=== PATIENT | female | born 1945 | race Caucasian/White ===

== ENCOUNTER → 2017-08-16 08:51 | Outpatient (CLI) | payer MEDICARE, SELFPAY ==
--- NOTE | 2017-08-16 09:05 | RAD_ITS ---
STUDY: X-RAY CHEST REASON FOR EXAM: Female, 72 years old. Shortness of breath and dyspnea. TECHNIQUE: PA and lateral views of the chest. COMPARISON: None. FINDINGS: The lungs are fully expanded. There are a few minor curvilinear densities in the lung bases that suggest sites of focal chronic change. No consolidating infiltrate. There is no demonstrated pleural abnormality. Sternal cerclage wires and vascular clips are present from a prior sternotomy and coronary artery bypass graft procedure (CABG). A mitral valve prosthesis also projects over the cardiac silhouette. Normal mediastinum and joshua. Normal visualized pulmonary arteries. There is mild atherosclerotic calcification of the aortic arch. There are multilevel degenerative changes of the visualized thoracic spine. 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 There is no demonstrated abnormality of the visualized soft tissue structures of the upper abdomen. RAD/Chest PA and Lateral IMPRESSION: 1. Prior median sternotomy, CABG, and mitral valve replacement. The heart size and pulmonary vascular pattern are within normal limits. 2. Minor linear scarring in the lung bases. No pneumonic infiltrate or pleural effusion. Electronically Signed: Alan Rogers MD at 12:56 EDT , Service support ,
== END ==
PROVIDERS: Family Provider Internal Medicine; PCP Internal Medicine; Visit Provider Internal Medicine Pulmonary Disease
DX: J44.9 Chronic obstructive pulmonary disease, unspecified (principal); R06.00 Dyspnea, unspecified; R09.02 Hypoxemia
CPT/HCPCS: 71046

== ENCOUNTER → 2017-10-06 12:40 | Outpatient (CLI) | payer MEDICARE, SELFPAY ==
--- NOTE | 2017-10-06 12:44 | ECHOCS_ITS ---
Reason For Study: PHTN, DYSPNEA, EDEMA Procedure This was a 2D Doppler, Color Flow transthoracic echocardiogram. The exam was of poor technical quality due to body habitus. The study was technically difficult. Contrast injection was performed. Exam performed in department. Left Ventricle Normal LV size. Left ventricular systolic function is normal. The estimated ejection fraction is 65 %. Transmitral diastolic flow velocities suggest moderate (stage 2) diastolic dysfunction (pseudonormal pattern). No regional wall motion abnormalities noted. Right Ventricle Normal RV size. Normal systolic function. Atria The left atrium is mildly enlarged. Normal right atrium. No doppler evidence for ASD. Mitral Valve Stable appearing mechanical mitral valve apparatus. Trivial transvalvular insufficiency of the mitral valve. Tricuspid Valve Normal tricuspid valve. Trivial tricuspid valve insufficiency. Right ventricular systolic pressure estimated to be 29 mmHg. Aortic Valve Trisinus/trileaflet aortic valve. Moderate focal aortic valve calcification. Pulmonic Valve The pulmonic valve is not well visualized. Trivial pulmonic valve insufficiency. Great Vessels Normal sized aortic root. Pericardium/Pleural No pericardial effusion. Medication 22 gauge I.V. with prn adaptor inserted into right arm. Diluted definity 0.3ml given slow IV push to enhance endocardial definition. MMode/2D Measurements & Calculations LVIDd: 4.8 cm IVSd: 1.2 cm Ao root diam: 2.8 cm LVIDs: 3.1 cm LVPWd: 1.2 cm LA dimension: 5.0 cm RVDd: 3.0 cm FS: 35.8 % LAV(MOD-bp): 81.3 ml LA A4 area: 23.4 cm2 RA A4 area: 22.9 cm2 LAV(MOD-bp) Indexed: 36.5 ml/m2 LAV(MOD-sp2): 90.9 ml LAV(MOD-sp4): 72.6 ml Doppler Measurements & Calculations MV E max antonio: 141.7 cm/sec Lat Peak E' Antonio: 6.3 cm/sec Med Peak E' Antonio: 5.1 cm/sec MV A max antonio: 110.7 cm/sec E/E' lat: 22.4 E/E' med: 27.7 MV E/A: 1.3 MV V2 max: 145.6 cm/sec Ao V2 max: 143.7 cm/sec LV V1 max: 94.9 cm/sec MV max P.5 mmHg Ao max P.3 mmHg LV V1 max P.6 mmHg MV V2 mean: 96.1 cm/sec MV mean P.9 mmHg MV V2 VTI: 38.9 cm PA V2 max: 144.4 cm/sec TR max antonio: 254.1 cm/sec TR max P.8 mmHg Interpretation Summary The study was technically difficult. Contrast injection was performed. Left ventricular systolic function is normal. The estimated ejection fraction is 65 %. The left atrium is mildly enlarged. Stable appearing mechanical mitral valve apparatus. Trivial transvalvular insufficiency of the mitral valve. Trivial tricuspid valve insufficiency. Moderate focal aortic valve calcification. Trivial pulmonic valve insufficiency. Right ventricular systolic pressure estimated to be 29 mmHg. Transmitral diastolic flow velocities suggest diastolic dysfunction (pseudonormal pattern). Ordering Physician: Renaldo Hubbard Referring Physician: Renaldo Hubbard Performed By: Germaine Hope, LISA, RVT
== END ==
PROVIDERS: Family Provider Internal Medicine; PCP Internal Medicine; Visit Provider Internal Medicine Pulmonary Disease
DX: I27.20 Pulmonary hypertension, unspecified (principal); R06.00 Dyspnea, unspecified; R60.9 Edema, unspecified
CPT/HCPCS: 93306; Q9957; A4216; C8929

== ENCOUNTER → 2017-10-10 12:42 | Outpatient (CLI) | payer MEDICARE, SELFPAY ==
--- NOTE | 2017-10-10 12:43 | CT_ITS ---
STUDY: CT CHEST WITHOUT CONTRAST REASON FOR EXAM: Female, 72 years old. COPD and shortness of breath RADIATION DOSAGE (If Supplied By Facility): CTDIvol = ( 20.26 ) mGy, DLP = ( 627.01 ) mGycm TECHNIQUE: Transaxial imaging was performed without the administration of intravenous contrast material. Individualized dose optimization techniques were used for this CT. COMPARISON: None. FINDINGS: There is prominence of interstitial markings most pronounced the lower lobes with scattered centrilobular and paraseptal emphysematous changes most pronounced in the upper lobes. . There is also thickening of the jeter of the bronchi in the lower lobes. No focal infiltration or pulmonary edema There is no demonstrated pleural abnormality. Heart is upper normal size. There is mitral valve prosthesis and postsurgical changes status post median sternotomy and CABG. Normal mediastinum. Normal hilar regions. Normal unenhanced pulmonary arteries. Atherosclerotic changes of the aorta without evidence for aneurysm. Dorsal spine demonstrates spondylosis There is no demonstrated abnormality of the visualized upper abdomen. CT/Chest without Contrast IMPRESSION: Chronic interstitial and emphysematous changes with coexisting ASHD. No acute focal infiltration or pulmonary edema Electronically Signed: Alec Sullivan MD at 22:46 EDT , Service support ,
== END ==
PROVIDERS: Family Provider Internal Medicine; PCP Internal Medicine; Visit Provider Internal Medicine Pulmonary Disease
DX: J44.9 Chronic obstructive pulmonary disease, unspecified (principal)
CPT/HCPCS: 71250

== ENCOUNTER 2017-11-13 08:00 | Outpatient (RCR) | payer MEDICARE, SELFPAY ==
--- NOTE | 2017-11-02 10:20 | PCM.PR.HP ---
History of Present Illness Arrival date:: 11/02/17 Arrival time:: 10:21 Date of Referral:: 10/24/17 Date of Evaluation: 11/02/17 Referring Physician: Dr. Renaldo Hubbard Primary Diagnosis: COPD History of Present Illness: Patient is a 72 year old female with COPD of Dr. Renaldo Hubbard's who presents to pulmonary rehab today for her evaluation and assessment to start pulmonary rehab. mMRC Breathless Scale: When is the patient short of breath? Y/N Grade: Description of Breathlessness: 0 I only get breathless with strenuous exercise. 1 I get short of breath when hurrying on level ground or walking up a slight hill. 2 On level ground, I walk slower than people of the same age because of breathless, or have to stop for breath when walking at my own pace. Y 3 I stop for breath after walking 100 yards or after a few minutes on level ground. 4 I am too breathless to leave the house or I am breathless when dressing. Respiratory Problems: Yes: Fatigue, Wheezing, Able to Speak in Full Sentences, Dizziness, Ankle Swelling, Dyspnea with Activity, Dyspnea Lying Down Flat No: Retain Secretions, Dyspnea at Rest Home Medications: Home Medications allopurinol 100 mg tablet See Label Instructions PO BID 08/22/17 atorvastatin 20 mg tablet 20 mg PO QDAY 08/22/17 carvedilol 6.25 mg tablet 6.25 mg PO BID 08/22/17 nitroglycerin 0.4 mg sublingual tablet 0.4 mg SUBLINGUAL Q5M PRN 08/22/17 pregabalin 100 mg capsule See Label Instructions PO TID 08/22/17 tramadol 50 mg tablet 50 mg PO .QID PRN tab 08/22/17 amoxicillin 500 mg capsule 2 g PO .COMPLEX cap 08/29/17 duloxetine 20 mg capsule,delayed release PO 30 Days #60 08/29/17 furosemide 40 mg tablet 40 mg PO QDAY tab 08/29/17 pregabalin 200 mg capsule PO 30 Days #90 08/29/17 ranitidine 150 mg tablet PO 10 Days #20 08/29/17 warfarin 4 mg tablet 4 mg PO QDAY 08/29/17 Albuterol Sulfate [Proair Hfa] 8.5 gm IH Q4H PRN PRN 11/02/17 Ascorbic Acid [Vitamin C] 1,000 mg PO 11/02/17 Aspirin [Lo-Dose Aspirin EC] 81 mg PO 11/02/17 Cetirizine HCl [Zyrtec] 10 mg PO DAILY 11/02/17 Cyanocobalamin (Vitamin B-12) [Vitamin B-12] 1,000 mcg PO 11/02/17 Duloxetine HCl [Cymbalta] 11/02/17 Glucosamine Complex-Vit D3 Cpt 11/02/17 Magnesium Oxide [Magnesium] 500 mg PO 11/02/17 Pregabalin [Lyrica] 200 mg PO BID 11/02/17 Sour Benedict Extract [Tart Benedict Extract] 1,000 mg PO 11/02/17 Triamcinolone Acetonide [Nasacort Aq Nasal [place]] 11/02/17 Umeclidinium Brm/Vilanterol Tr [Anoro Ellipta 62.5-25 Mcg INH] 1 each IH 11/02/17 Vitamin E (Dl,Tocopheryl Acet) [Vitamin E] 400 unit PO 11/02/17 Allergies/Adverse Reactions: Allergies No Known Allergies Allergy (Verified 08/29/17 10:16) - Secretions Normal Color:: none Hx of Sleep Apnea: Yes Do you snore loudly (louder than talking or can be heard through closed doors)?: Yes - Diagnosed twice with YAMILETH and had test locally that doesnt but requires O2@ at night due to nocturnal hypoxemia. Do you often feel tired/ fatigued/ sleepy during daytime?: Yes Has anyone observed you stop breathing during sleep?: Yes History of Hypertension (for STOP score): Yes STOP Results: Positive Medical Utilization Do you use a peak flow meter at home?: No Do you use a spacer device with your inhalers?: No Number of hospital visits in the last year?: 0 Number of emergency room visits in the last year?: 0 Do you see your physician on a regular schedule?: Yes How often?: Yes; Keely 6 mo; Haydee 3 mo; Maria Luz annual Advanced Directives - Advanced Directives Power of Sensitizer: No Living Will: No Advance Directives Information Provided: Yes - Retort Operator here to see patient and complete appropiate forms w/patient. Advance Directives on File: Yes - Copied by Retort OperatorKecia DNR Order?:: No - MOLST See MOLST form: No Past Medical History Medical History: Past Medical History (Last Updated 08/16/17 @ 12:41 by Cande Fu) Persistent atrial fibrillation (Chronic) I48.1 Ischemic cardiomyopathy (Chronic) I25.5 Atherosclerotic heart disease of [place] coronary artery without angina pectoris (Chronic) I25.10 Surgical History: Past Surgical History (Last Reviewed 08/29/17 @ 10:16 by Cande Fu) History of throat surgery (Resolved) Z98.890 Hx of appendectomy (Resolved) Z90.49 History of tonsillectomy (Resolved) Z90.89 H/O: hysterectomy (Resolved) Z90.710 Hx of hernia repair (Resolved) Z98.890, Z87.19 H/O mitral valve replacement (Resolved) Z95.2 H/O coronary artery bypass surgery (Resolved) Z95.1 CABG x2 SVG to LAD and SVG to RCA 2005 Family History: Family History (Last Reviewed 08/29/17 @ 10:16 by Cande Fu) Mother CAD (coronary artery disease) Father CAD (coronary artery disease) - Current/ Previous Services Pulmonary Rehab:: No - Comments Comments: Did Cardiac Rehab in 2005 following her heart surgery in [place]. Social History - Smoking History Smoking Status: Former smoker - Quit smoking in 2013 Hx Tobacco Use: Yes Hx Smoking Exposure: No - Alcohol Use Alcohol Usage: No - Substance Abuse Hx Substance Use: No - Occupation Occupation (List type of work in comments):: Retired - Hobbies, Recreation, Social Activities Hobbies: Other - gardening, reading, and old movies. Functioning ADL/IADL - Current Ability Current Ability: Independent Self-Care (e.g.,grooming, dressing, & bathing), Independent Ambulation, Independent Transfer, Independent Household tasks (e.g., light meal prep, laundry, shopping) - Pt Functioning Prior to Problem Prior Functioning: Self-Care (e.g.,grooming, dressing, & bathing): Independent, Ambulation: Independent, Transfer: Independent, Household tasks (e.g., light meal prep, laundry, shopping): Independent Social Environment - Status Marital Status: - Current Living Arrangements Living Environment:: Alone - Children How many children do you have?: 2 - 1-in [facility] care, one grandchild. Do any of your children live nearby?: No - [place], [place] - Safety Do you feel safe in your surroundings?: Yes Review of Systems Review of Systems: Right click = Denies ([place]). Left click = Reports ([place]) Respiratory: Reports: Appetite, Normal, Sleep, Normal. Denies: Cough, SOB at Rest, Sputum production Is Patient Pain Free?: Yes Pain Location: none Pain Level: 0/10 Risk Factor Assessment - Chief Complaint Chief Complaint: Mrs Silva is a 72F who presents to pulmonary rehabilitation services today under the care of Dr. Renaldo Hubbard for her COPD. The patient cathryn has a previous heart history with CABG done in 2005 in [place] and is currently seeing Dr. Shadi Braga locally for her heart care. - Vital Signs Temperature: 98.7 F Pulse Rate: 66 Pulse Rhythm: Regular Respiratory Rate: 16 Pulse Ox: 96 Blood Pressure: 132/78 - patient walked from [address] [place] [address] Nailbeds:: pink - Diabetes Nutrition Referral for Diabetes: No - Obesity Height: 5 ft 8 in Weight:: 238 lb Weight in Pounds: 238.0 lbs Weight Source: Standing Scale Body Mass Index (BMI): 36.1 Nutritional Referral for Obesity: Yes - seeing dietary recently for weight counseling and weight loss. - Physical Activity Physical Inactivity: Recreational activity - Risk Stratification Risk Guidelines: Lowest Risk: Risk Factor for Smoking, Risk Factor for Dyslipidemia, Risk Factor for Diabetes, Risk Factor for Depression, Moderate Risk: Risk Factor for Hypertension, Risk Factor for Sedentary Lifestyle, Highest Risk: Risk Factor for Obesity - For Smoking Smoking Risk Guidelines: Smoking Low Risk: None or quit greater than 6 months ago. Smoking Moderate Risk: Smoker or quit 6 months or less ago. Smoking High Risk: Smoker - For Dyslipidemia Dyslipidemia Risk Guidelines: Low Risk: Moderate Risk: High Risk: 15-25% fat 25.1-29% fat >/= 30% fat. <7% sat fat 7-9% sat fat >9% sat fat. <150 mg chol 150-299 mg chol >/= 300 mg chol. LDL <100 LDL 100-129 LDL >/= 130. Chol/HDL ratio <5.0 Chol/HDL ratio 5.0-6.0 Chol/HDL ratio >6.0. Triglycerides <100 Triglycerides 100-149 Triglycerides >/= 150 - For Diabetes Mellitus Diabetes Risk Guidelines: Diabetes Low Risk: HgA1c <6.5% and/or FBG <120. Diabetes Moderate Risk: HgA1c 6.6-7.9% and/or FBG 120-180. Diabetes High Risk: HgA1c >/= 8% and/or FBG >180 - For Obesity/Overweight Obesity/Overweight Risk Guidelines: Obesity Low Risk: BMI <25.0. Obesity Moderate Risk: BMI 25-29.9. Obesity High Risk: BMI >/= 30.0 - For Hypertension Hypertension Risk Guidelines: Hypertension Low Risk: Systolic <120 and Diastolic <80. Hypertension Moderate Risk: Systolic 120-139 and Diastolic 80-89. Hypertension High Risk: Systolic >/= 140 and Diastolic >/= 90 - For Sedentary Lifestyle Sedentary Lifestyle Risk Guidelines: Sedentary Lifestyle Low Risk: >/= 1,500 kcal/week. Sedentary Lifestyle Moderate Risk: 700-1,499 kcal/week. Sedentary Lifestyle High Risk: < 700 kcal/week - For Depression Depression Risk Guidelines: Depression Low Risk: Not clinically depressed. Depression Moderate Risk: Mildly depressed. Depression High Risk: Clinically depressed Motivation - Motivation to Participate On a scale of 1 to 10, how prepared are you to commit to attending program?: 10 What do you see as barriers to successfully being able to complete the program?: none; transportation perhaps. What do you see as the benefits of succesfully completing the program? In other words, what do you hope to get out of participating in the program?: endurance, strength, abiltiy to participate in activites recreation etc. Are there issues you are dealing with that will interfere with completing the program?: none Do you have a spouse or signficant other, family or friends who will help support you to complete the program?: yes Diagnostic Data Review - Pulmonary Function Test FEV1:: 1.19 FVC:: 1.94 FEV1/FVC%:: 61 Gold Classification: GOLD class II(mod. COPD)with FEV1/FVC <70%, 50%</= FEV1< 50% predicted
--- NOTE | 2017-11-02 10:33 | PR.HP_ITS ---
History of Present Illness Arrival date:: 11/02/17 Arrival time:: 10:21 Date of Referral:: 10/24/17 Date of Evaluation: 11/02/17 Referring Physician: Dr. Renaldo Hubbard Primary Diagnosis: COPD History of Present Illness: Patient is a 72 year old female with COPD of Dr. Renaldo Hubbard's who presents to pulmonary rehab today for her evaluation and assessment to start pulmonary rehab. [facility] Breathless Scale: When is the patient short of breath? Y/N Grade: Description of Breathlessness: 0 I only get breathless with strenuous exercise. 1 I get short of breath when hurrying on level ground or walking up a slight hill. 2 On level ground, I walk slower than people of the same age because of breathless, or have to stop for breath when walking at my own pace. Y 3 I stop for breath after walking 100 yards or after a few minutes on level ground. 4 I am too breathless to leave the house or I am breathless when dressing. Respiratory Problems: Yes: Fatigue, Wheezing, Able to Speak in Full Sentences, Dizziness, Ankle Swelling, Dyspnea with Activity, Dyspnea Lying Down Flat No: Retain Secretions, Dyspnea at Rest Home Medications: Home Medications allopurinol 100 mg tablet See Label Instructions PO BID 08/22/17 atorvastatin 20 mg tablet 20 mg PO QDAY 08/22/17 carvedilol 6.25 mg tablet 6.25 mg PO BID 08/22/17 nitroglycerin 0.4 mg sublingual tablet 0.4 mg SUBLINGUAL Q5M PRN 08/22/17 pregabalin 100 mg capsule See Label Instructions PO TID 08/22/17 tramadol 50 mg tablet 50 mg PO .QID PRN tab 08/22/17 amoxicillin 500 mg capsule 2 g PO .COMPLEX cap 08/29/17 duloxetine 20 mg capsule,delayed release PO 30 Days #60 08/29/17 furosemide 40 mg tablet 40 mg PO QDAY tab 08/29/17 pregabalin 200 mg capsule PO 30 Days #90 08/29/17 ranitidine 150 mg tablet PO 10 Days #20 08/29/17 warfarin 4 mg tablet 4 mg PO QDAY 08/29/17 Albuterol Sulfate [Proair Hfa] 8.5 gm IH Q4H PRN PRN 11/02/17 Ascorbic Acid [Vitamin C] 1,000 mg PO 11/02/17 Aspirin [Lo-Dose Aspirin EC] 81 mg PO 11/02/17 Cetirizine HCl [Zyrtec] 10 mg PO DAILY 11/02/17 Cyanocobalamin (Vitamin B-12) [Vitamin B-12] 1,000 mcg PO 11/02/17 Duloxetine HCl [Cymbalta] 11/02/17 Glucosamine Complex-Vit D3 Cpt 11/02/17 Magnesium Oxide [Magnesium] 500 mg PO 11/02/17 Pregabalin [Lyrica] 200 mg PO BID 11/02/17 Sour Benedict Extract [Tart Benedict Extract] 1,000 mg PO 11/02/17 Triamcinolone Acetonide [Nasacort Aq Nasal [place]] 11/02/17 Umeclidinium Brm/Vilanterol Tr [Anoro Ellipta 62.5-25 Mcg INH] 1 each IH Vitamin E (Dl,Tocopheryl Acet) [Vitamin E] 400 unit PO 11/02/17 Allergies/Adverse Reactions: Allergies No Known Allergies Allergy (Verified 08/29/17 10:16) - Secretions Normal Color:: none Hx of Sleep Apnea: Yes Do you snore loudly (louder than talking or can be heard through closed doors)? : Yes - Diagnosed twice with YAMILETH and had test locally that doesnt but requires O2@ at night due to nocturnal hypoxemia. Do you often feel tired/ fatigued/ sleepy during daytime?: Yes Has anyone observed you stop breathing during sleep?: Yes History of Hypertension (for STOP score): Yes STOP Results: Positive Medical Utilization Do you use a peak flow meter at home?: No Do you use a spacer device with your inhalers?: No Number of hospital visits in the last year?: 0 Number of emergency room visits in the last year?: 0 Do you see your physician on a regular schedule?: Yes How often?: Yes; Keely 6 mo; Haydee 3 mo; Maria Luz annual Advanced Directives - Advanced Directives Power of Tram Driver: No Living Will: No Advance Directives Information Provided: Yes - Director Operating here to see patient and complete appropiate forms w/patient. Advance Directives on File: Yes - Copied by Director OperatingKecia DNR Order?:: No - MOLST See MOLST form: No Past Medical History Medical History: Past Medical History (Last Updated 08/16/17 @ 12:41 by Cande Fu) Persistent atrial fibrillation (Chronic) I48.1 Ischemic cardiomyopathy (Chronic) I25.5 Atherosclerotic heart disease of [place] coronary artery without angina pectoris (Chronic) I25.10 Surgical History: Past Surgical History (Last Reviewed 08/29/17 @ 10:16 by Cande Fu) History of throat surgery (Resolved) Z98.890 Hx of appendectomy (Resolved) Z90.49 History of tonsillectomy (Resolved) Z90.89 H/O: hysterectomy (Resolved) Z90.710 Hx of hernia repair (Resolved) Z98.890, Z87.19 H/O mitral valve replacement (Resolved) Z95.2 H/O coronary artery bypass surgery (Resolved) Z95.1 CABG x2 SVG to LAD and SVG to RCA 2005 Family History: Family History (Last Reviewed 08/29/17 @ 10:16 by Cande Fu) Mother CAD (coronary artery disease) Father CAD (coronary artery disease) - Current/ Previous Services Pulmonary Rehab:: No - Comments Comments: Did Cardiac Rehab in 2005 following her heart surgery in [place]. Social History - Smoking History Smoking Status: Former smoker - Quit smoking in 2013 Hx Tobacco Use: Yes Hx Smoking Exposure: No - Alcohol Use Alcohol Usage: No - Substance Abuse Hx Substance Use: No - Occupation Occupation (List type of work in comments):: Retired - Hobbies, Recreation, Social Activities Hobbies: Other - gardening, reading, and old movies. Functioning ADL/IADL - Current Ability Current Ability: Independent Self-Care (e.g.,grooming, dressing, & bathing), Independent Ambulation, Independent Transfer, Independent Household tasks (e.g. , light meal prep, laundry, shopping) - Pt Functioning Prior to Problem Prior Functioning: Self-Care (e.g.,grooming, dressing, & bathing): Independent, Ambulation: Independent, Transfer: Independent, Household tasks (e.g., light meal prep, laundry, shopping): Independent Social Environment - Status Marital Status: - Current Living Arrangements Living Environment:: Alone - Children How many children do you have?: 2 - 1-in [place] care, one grandchild. Do any of your children live nearby?: No - [place], [place] - Safety Do you feel safe in your surroundings?: Yes Review of Systems Review of Systems: Right click = Denies ([place]). Left click = Reports ([place]) Respiratory: Reports: Appetite, Normal, Sleep, Normal. Denies: Cough, SOB at Rest, Sputum production Is Patient Pain Free?: Yes Pain Location: none Pain Level: 0/10 Risk Factor Assessment - Chief Complaint Chief Complaint: Mrs Silva is a 72F who presents to pulmonary rehabilitation services today under the care of Dr. Renaldo Hubbard for her COPD. The patient cathryn has a previous heart history with CABG done in 2005 in [place] and is currently seeing Dr. Shadi Braga locally for her heart care. - Vital Signs Temperature: 98.7 F Pulse Rate: 66 Pulse Rhythm: Regular Respiratory Rate: 16 Pulse Ox: 96 Blood Pressure: 132/78 - patient walked from [employer] [place] apt. Nailbeds:: pink - Diabetes Nutrition Referral for Diabetes: No - Obesity Height: 5 ft 8 in Weight:: 238 lb Weight in Pounds: 238.0 lbs Weight Source: Standing Scale Body Mass Index (BMI): 36.1 Nutritional Referral for Obesity: Yes - seeing dietary recently for weight counseling and weight loss. - Physical Activity Physical Inactivity: Recreational activity - Risk Stratification Risk Guidelines: Lowest Risk: Risk Factor for Smoking, Risk Factor for Dyslipidemia, Risk Factor for Diabetes, Risk Factor for Depression, Moderate Risk: Risk Factor for Hypertension, Risk Factor for Sedentary Lifestyle, Highest Risk: Risk Factor for Obesity - For Smoking Smoking Risk Guidelines: Smoking Low Risk: None or quit greater than 6 months ago. Smoking Moderate Risk: Smoker or quit 6 months or less ago. Smoking High Risk: Smoker - For Dyslipidemia Dyslipidemia Risk Guidelines: Low Risk: Moderate Risk: High Risk: 15-25% fat 25.1-29% fat >/= 30% fat. <7% sat fat 7-9% sat fat >9% sat fat. <150 mg chol 150-299 mg chol >/= 300 mg chol. LDL <100 LDL 100-129 LDL >/= 130. Chol/HDL ratio <5.0 Chol/HDL ratio 5.0-6.0 Chol/HDL ratio >6.0. Triglycerides <100 Triglycerides 100-149 Triglycerides >/= 150 - For Diabetes Mellitus Diabetes Risk Guidelines: Diabetes Low Risk: HgA1c <6.5% and/or FBG <120. Diabetes Moderate Risk: HgA1c 6.6-7.9% and/or FBG 120-180. Diabetes High Risk: HgA1c >/= 8% and/or FBG >180 - For Obesity/Overweight Obesity/Overweight Risk Guidelines: Obesity Low Risk: BMI <25.0. Obesity Moderate Risk: BMI 25-29.9. Obesity High Risk: BMI >/= 30.0 - For Hypertension Hypertension Risk Guidelines: Hypertension Low Risk: Systolic <120 and Diastolic <80. Hypertension Moderate Risk: Systolic 120-139 and Diastolic 80-89. Hypertension High Risk: Systolic >/= 140 and Diastolic >/= 90 - For Sedentary Lifestyle Sedentary Lifestyle Risk Guidelines: Sedentary Lifestyle Low Risk: >/= 1 ,500 kcal/week. Sedentary Lifestyle Moderate Risk: 700-1,499 kcal/week. Sedentary Lifestyle High Risk: < 700 kcal/week - For Depression Depression Risk Guidelines: Depression Low Risk: Not clinically depressed. Depression Moderate Risk: Mildly depressed. Depression High Risk: Clinically depressed Motivation - Motivation to Participate On a scale of 1 to 10, how prepared are you to commit to attending program?: 10 What do you see as barriers to successfully being able to complete the program? : none; transportation perhaps. What do you see as the benefits of succesfully completing the program? In other words, what do you hope to get out of participating in the program?: endurance, strength, abiltiy to participate in activites recreation etc. Are there issues you are dealing with that will interfere with completing the program?: none Do you have a spouse or signficant other, family or friends who will help support you to complete the program?: yes Diagnostic Data Review - Pulmonary Function Test FEV1:: 1.19 FVC:: 1.94 FEV1/FVC%:: 61 Gold Classification: GOLD class II(mod. COPD)with FEV1/FVC <70%, 50%</= FEV1< 50 % predicted
--- NOTE | 2017-11-02 10:40 | PR.ITP_ITS ---
General Information - General Information Admitting Diagnosis: COPD Gold Classification:: GOLD 2: Moderate - PFT FEV1:: 1.19 FVC:: 1.94 FEV1/FVC%:: 61 - Education/Goals Barriers to Learning: Hearing Impairment, Vision Impairment Individual Counseling: Initial Assessment: Dyspnea control techniques at rest, activity, and ADLs, Inhaled and respiratory medications, ADL management and pacing, Nutrition & weight management, Home exercise plan & guidelines Patient Goals: Breathe better: Initial Assessment, Increase endurance/stamina: Initial Assessment, Return to recreation/hobby: Initial Assessment, Control panic/anxiety: Initial Assessment, Improve diet and nutrition: Initial Assessment, Symptom management: Initial Assessment, Improve weight: Initial Assessment Exercise - Initial Assessment - Visit Date of Eval: 11/02/17 - Problem/Goals Problems: Deconditioning, Knowledge deficit exercise guidelines, Knowledge deficit exercise safety Goals:: Aerobic exercise 30-60 mins x 9 weeks - Exercise Prescription Mode:: Treadmill, Airdyne, NuStep, Arm Ergometer Frequency (x/week): 3 Duration:: 30 MET LEVEL:: 2.5 HR (bpm):: 112 - 105-112 THRR Exercise Progression: As tolerated per protocol. - Plan Plan and Plan to Review:: Benefits of exercise, Core components of exercise, How to measure dyspnea level, How to monitor dyspnea level, Exercise intensity, Exercise safety guideline, Home exercise guidelines, Selena: 3-4/-13 Disease Management - Initial - Problems/Goals-Hypoxemia Hypoxemia Problems:: Hypoxemia - nocturnal hypoxemia uses oxygen at night. Hypoxemia Goals:: Hypoxemia managed, Using O2 as Rx's safely - Problems/Goals-Medications Medication Goals: Correct technique/timing & care of MDI, DPI, nebulizer, and spacer. - Problems/Goals-Bronchial Hygiene Bronchial Hygiene Goals:: Pt demonstrates effective cough, effective secretion clearance., Pt describes signs and symptoms of infection. - Initial Assessment SpO2:: 93 FiO2:: 21 Does pt report taking home meds as prescribed?: Yes Medications: Yes MDI, Yes DPI, No Spacer - Requires instruction use and set-up of device Patient Reports:: No cough - Plans Hypoxemia Plan:: Monitor SpO2 rest & with exercise, Train appropriate O2 use at rest, Train appropriate O2 use with exercise, Train O2 safety & systems Reviewed prescribed medications:: Purpose Instruct correct technique/timing & care:: MDI, DPI Bronchial Hygiene Plan: Controlled cough, Hydration, Hand hygiene, When to call MD, Signs/symptoms to report:, Cleaning of respiratory equipment Psychosocial - Initial Assess - Problems/Goals Problems: Impaired Q.O.L. Psychosocial Goals: Improved Q.O.L. - Psychosocial Test Depression:: Impaired QOL Referred to MD for counseling:: No - Plan Reviewed screening results: No Instructions given regarding:: Benefits of exercise, Relaxation techniques, Training in coping strategies Stress management: On meds currently Tobacco - Initial Assessment - Program Goals Tobacco Program Goals: Complete smoking cessation. Attend education classes. Improve Knowledge Test score - Stage of Change Stages of Change:: Action - Learning Barriers Learning Barriers: Ready to Learn - Tobacco Use Tobacco Use: Non-smoker - previous smoker quit 14 years ago. How long ago did you quit using tobacco products?: Greater than or equal to 6 months ago - Intervention Smoking Cessation Referral:: No Individual Education/Counseling:: No Education Schedule Given:: Yes - Education Gave Education Materials For:: Pulmonary Disease, Risk Factors, Breathing Techniques, Medical Compliance, Pulmonary A&P, Exacerbation Signs & Symptoms, Stress & Relaxation Nutrition/Wt Mgmt - Initial - Problems/Goals Problems: Overweight Goals: Wt Loss 1-2 lbs per week - Weight Management Knowledge Deficit Management of:: Overweight, Role of exercise in weight control , Weight control w/Prednisone - Diabetes Diabetes:: No Insulin: No Do you monitor your blood sugar at home?: No - Intervention Referral to dietitian:: No Referral to Diabetic Clinic:: No Will attend diet classes:: Yes - Plan Nutrition Plan: Yes Review BMI or WC & identify target wt & strategies for wt control, Yes Weight control education class: Patient Health Questionnaire Initial Assessment 1. Little interest or pleasure in doing things: Not at all 2. Feeling down, depressed, or hopeless: Several days 3. Trouble falling or staying asleep, or sleeping too much: Several days 4. Feeling tired or having little energy: More than half the days 5. Poor appetite or overeating: Several days 6. Feeling bad about yourself -- or that you are a failure or have let yourself or your family down: Not at all 7. Trouble concentrating on things, such as reading the newspaper or watching television: Several days 8. Moving or speaking so slowly that other people could have noticed. Or the opposite - being so fidgety or restless that you have been moving around a lot more than usual: Not at all 9. Thoughts that you would be better off , or of hurting yourself in some way: Not at all How difficult have these problems made it for you to do your work, take care of things at home, or get along with other people?: Somewhat difficult Total Score: 6 COPD Knowledge Test Initial COPD is a lung disease that:: Makes it hard to breathe & gets worse over time In the [place] the term COPD describes 2 main lung conditions:: Emphysema & pulmonary hypertension The most common lung irritant that causes COPD is:: Cigarette smoke Common signs and symptoms of COPD include:: An ongoing cough/cough that produces a large amount of mucus, & SOB If you have COPD, what steps can you take?: All of the above Swelling of the ankles is common in COPD:: False Fatigue [tiredness] is common in COPD:: True Wheezing is common in COPD:: True Crushing chest pain is common in COPD:: False Rapid weight loss is common in COPD:: False Breathlessness is a normal response to exercise: False Exercise should be avoided if it makes you short of breath: False All bronchodilators act within 10 minutes: True A spacer device increases the medication to the lungs: False Annual flu vaccine is recommended for pts w/lung disease: True COPD Knowledge Test Total Score:: 11 COPD Assessment Test [CAT] - Questions Never cough = 0, Cough all the time = 5: 2 No phlegm = 0, Chest full of phlegm = 5: 1 No chest tightness = 0, Chest very tight = 5: 0 No breathless w/exertion = 0, Very breathless w/exertion = 5: 5 No limitations w/activity = 0, Very limited w/activity = 5: 3 Confident leaving home = 0, Not at all confident = 5: 1 Sleep soundly = 0, Don't sleep soundly = 5: 2 Lots of energy = 0, No energy at all = 5: 4 Total CAT score:: 18 Self-Efficacy Initial Assessment We would like to know how confident you are in doing certain activities. Please select your confidence level for:: Select your confidence level for the following using the scale 1-10 where 1 is not at all confident and 10 is totally confident. Your score is the average of all 6 responses. Fatigue: How confident are you that you can keep the fatigue caused by your disease from interfering with the things you want to do? Select Number: 5 Physical Discomfort or Pain: How confident are you that you can keep the physical discomfort or pain of your disease from interfering with the things you want to do? Select Number: 3 Emotional Distress: How confident are you that you can keep the emotional distress caused by your disease from interfering with the things you want to do? Select Number: 2 Other Symptoms or Health Problems: How confident are you that you can keep other symptoms or health problems from interfering with the things you want to do? Select Number: 5 Different Tasks and Activities: How confident are you that you can do the different tasks and activities needed to manage your health condition so as to reduce your need to see a doctor? Select Number: 4 Medication: How confident are you that you can do things other than just taking medication to reduce how much your illness affects your everyday life? Select Number: 8 Total Score:: 4 Nutrition Survey - Nutrition Survey Instructions Scoring Instructions: Scoring is as follows: Yes = 1 points. No = 0 point. Patient score that is >/=12 is considered to be at potential nutritional risk and could benefit from a referral to a registered dietitian. - Nutrition Survey Initial Have you lost >10 lbs over the past 2 months without trying?: No Are you following a special diet at home for diabetes, low fat, or low salt?: Yes Are you interested in meeting with a dietitian for help understanding your diet? : Yes Do you eat less than 3 meals a day?: No Do you eat fatty meats (mancia, sausage, ribs, etc), fried foods, desserts, large amounts of salad dressings, margarine, butter, or cheese most days?: No Do you have food allergies? [Enter types in comment field]: No Do you eat in restaurants more than 3 times a week?: No Do you season food with salt, seasoning salt, or garlic salt?: Yes Do you used canned, boxed, frozen meals, or soups, seasoning packets?: Yes Total Score:: 4
[2017-11-02 11:15] VITALS: O2SAT 93
[2017-11-02 11:21] VITALS: BP 132/78; PULSE 66; RESP 16; TEMP 37.1; O2SAT 96; BMI 36.1
--- NOTE | 2017-11-02 12:19 | CM.ED ---
Social Work Note Referral from Asif, Cardiac Content Producer, to complete advanced directives with pt. Introduced self and role at [facility]. Educated to the difference between HCPOA and Living Will. Pt expresses understanding and completes documents. Discuss beliefs and values and importance of communicating these with her appointed proxy. Pt denies further questions. Provide her with the original and made a copy for her to send to her daughter. Copy provided to medical records for pt's medical chart. No further needs at this time. Intervention: Advanced Care Planning - 45 minutes. Kecia Griffin, LEATHER HEEL BREASTER, EXPLORATION MANAGER
== END 2017-11-14 23:59 ==
LOC: PR 08:00
PROVIDERS: Family Provider Internal Medicine; PCP Internal Medicine; Visit Provider Internal Medicine Pulmonary Disease
DX: J44.9 Chronic obstructive pulmonary disease, unspecified (principal)
CPT/HCPCS: 97150; G0424

== ENCOUNTER 2017-12-07 08:31 | Outpatient (RCR) | payer MEDICARE, SELFPAY | END 2017-12-15 23:59 | LOC: NS 08:31 | PROVIDERS: Family Provider Internal Medicine; PCP Internal Medicine; Visit Provider Internal Medicine Pulmonary Disease | DX: E78.5 Hyperlipidemia, unspecified (principal); I10 Essential (primary) hypertension; I25.5 Ischemic cardiomyopathy; E66.9 Obesity, unspecified; Z68.36 Body mass index [BMI] 36.0-36.9, adult; Z71.3 Dietary counseling and surveillance | CPT/HCPCS: 97802 ==

== ENCOUNTER 2017-12-15 08:00 | Outpatient (RCR) | payer MEDICARE, SELFPAY ==
[2017-11-15 01:23] VITALS: BP 132/78; PULSE 66; RESP 16; TEMP 37.1; O2SAT 96
--- NOTE | 2017-12-08 11:26 | PCM.PR.DAT ---
Dates of Coverage Times for Dates Of Coverage; All dates of coverage are for physician supervision/medical office administrator for during the times of 08:00 AM through 4:30 PM. Effective Dec 16, 2012 our hours will be changing to 8:00 to 4:30 on Monday, Monday and Monday. First Date of the Month: 12/16/17 Last Date of the Month: 01/14/18
--- NOTE | 2017-12-08 11:32 | PR.ITP_ITS ---
Exercise - 60-Day Assessment - Current Level Mode:: Treadmill, NuStep, Arm Ergometer Frequency (x/week): 3 Duration:: 35 Aerobic Exercise [30-60 min 3-7x/week]:: Progressing Target heart rate: 105-112 Selena-13 MET Level:: 2.5 - Home Exercise Home Exercise:: No Disease Management - 60-Day - Medications Medication list reviewed:: Yes Taking medications 100% of the time:: Met Medication reassessment: Yes Pt demonstrates correct technique timing for MDI, Yes Pt demonstrates correct technique timing for DPI, Yes Pt demonstrates correct technique timing for NEB, Yes Pt demonstrates correct technique timing for spacer - return use of spacer device - Bronchial Hygiene Bronchial Hygiene Plan: Yes Pt demonstrates correctly for effective cough, Yes Pt demo correct for device - return use of acapella, Yes Pt demo correct for verbalize when to call MD Psychosocial - 60-Day - Assessment Depression reassess: Management of stress: Progressing, Management of depression : Progressing, Practicing interventions: Progressing Tobacco - 60-Day Assessment - Program Goals Tobacco Program Goals: Complete smoking cessation. Attend education classes. Improve Knowledge Test score - Stage of Change Stages of Change:: Action - Learning Barriers Learning Barriers: Participates in education - Family Support Do you have family support?: Yes - Tobacco Use Tobacco Use: Non-smoker Do you use smokeless tobacco?: No - Intervention Smoking Cessation Referral:: No Individual Education/Counseling:: No Education Schedule Given:: Yes - Education Gave Education Materials For:: Pulmonary Disease, Risk Factors, Breathing Techniques, Medical Compliance, Pulmonary A&P, Exacerbation Signs & Symptoms, Stress & Relaxation Nutrition/Wt Mgmt - 60-Day - Weight Management Weight Assessment:: Wt stable Weight:: 246 lb - Seeing Why Weight Nutrition prgram Patient Health Questionnaire 60-Day Re-eval Assessment 1. Little interest or pleasure in doing things: Not at all 2. Feeling down, depressed, or hopeless: Several days 3. Trouble falling or staying asleep, or sleeping too much: Several days 4. Feeling tired or having little energy: More than half the days 5. Poor appetite or overeating: Several days 6. Feeling bad about yourself -- or that you are a failure or have let yourself or your family down: Not at all 7. Trouble concentrating on things, such as reading the newspaper or watching television: Several days 8. Moving or speaking so slowly that other people could have noticed. Or the opposite - being so fidgety or restless that you have been moving around a lot more than usual: Not at all 9. Thoughts that you would be better off , or of hurting yourself in some way: Not at all How difficult have these problems made it for you to do your work, take care of things at home, or get along with other people?: Somewhat difficult Total Score: 6 COPD Assessment Test [CAT] - Questions Never cough = 0, Cough all the time = 5: 2 No phlegm = 0, Chest full of phlegm = 5: 1 No chest tightness = 0, Chest very tight = 5: 0 No breathless w/exertion = 0, Very breathless w/exertion = 5: 3 No limitations w/activity = 0, Very limited w/activity = 5: 3 Confident leaving home = 0, Not at all confident = 5: 1 Sleep soundly = 0, Don't sleep soundly = 5: 2 Lots of energy = 0, No energy at all = 5: 4 Total CAT score:: 16 Self-Efficacy 60-Day Re-eval Assessment We would like to know how confident you are in doing certain activities. Please select your confidence level for:: Select your confidence level for the following using the scale 1-10 where 1 is not at all confident and 10 is totally confident. Your score is the average of all 6 responses. Fatigue: How confident are you that you can keep the fatigue caused by your disease from interfering with the things you want to do? Select Number: 6 Physical Discomfort or Pain: How confident are you that you can keep the physical discomfort or pain of your disease from interfering with the things you want to do? Select Number: 4 Emotional Distress: How confident are you that you can keep the emotional distress caused by your disease from interfering with the things you want to do? Select Number: 3 Other Symptoms or Health Problems: How confident are you that you can keep other symptoms or health problems from interfering with the things you want to do? Select Number: 5 Different Tasks and Activities: How confident are you that you can do the different tasks and activities needed to manage your health condition so as to reduce your need to see a doctor? Select Number: 4 Medication: How confident are you that you can do things other than just taking medication to reduce how much your illness affects your everyday life? Select Number: 8 Total Score:: 5
== END 2017-12-15 23:59 ==
LOC: PR 08:00
PROVIDERS: Family Provider Internal Medicine; PCP Internal Medicine; Visit Provider Internal Medicine Pulmonary Disease
DX: J44.9 Chronic obstructive pulmonary disease, unspecified (principal)
CPT/HCPCS: 97150; G0424

== ENCOUNTER 2017-12-27 08:08 | Outpatient (RCR) | payer MEDICARE, SELFPAY | END 2018-01-14 23:59 | LOC: NS 08:08 | PROVIDERS: Family Provider Internal Medicine; PCP Internal Medicine; Visit Provider Internal Medicine Pulmonary Disease | DX: E78.5 Hyperlipidemia, unspecified (principal); I10 Essential (primary) hypertension; I25.5 Ischemic cardiomyopathy; E66.9 Obesity, unspecified; Z68.36 Body mass index [BMI] 36.0-36.9, adult; Z71.3 Dietary counseling and surveillance | CPT/HCPCS: 97803 ==

== ENCOUNTER 2018-01-12 08:00 | Outpatient (RCR) | payer MEDICARE, SELFPAY ==
[2017-12-16 01:25] VITALS: BP 132/78; PULSE 66; RESP 16; TEMP 37.1; O2SAT 96
--- NOTE | 2018-01-09 11:50 | PCM.PR.DAT ---
Dates of Coverage Times for Dates Of Coverage; All dates of coverage are for physician supervision/medical center manager for during the times of 08:00 AM through 4:30 PM. Effective Dec 16, 2012 our hours will be changing to 8:00 to 4:30 on Monday, Monday and Monday. First Date of the Month: 01/15/18 Last Date of the Month: 02/14/18
--- NOTE | 2018-01-09 11:55 | PR.ITP_ITS ---
Exercise - 60-Day Assessment - Current Level Mode:: Treadmill, NuStep, Arm Ergometer Frequency (x/week): 3 Duration:: 35 Aerobic Exercise [30-60 min 3-7x/week]:: Progressing Target heart rate: 105-112 w Max HR 112 Selena-13 MET Level:: 3.5 - Home Exercise Home Exercise:: Yes Frequency:: daily Time (minutes):: 20 - walks weather permitting Disease Management - 60-Day - Hypoxemia Reassessment: Demonstrates knowledge of O2 Rx with exercise - Medications Medication list reviewed:: Yes Taking medications 100% of the time:: Met Medication reassessment: Yes Pt demonstrates correct technique timing for MDI, Yes Pt demonstrates correct technique timing for DPI, Yes Pt demonstrates correct technique timing for NEB, Yes Pt demonstrates correct technique timing for spacer - returned use of spacer and MDI - Bronchial Hygiene Bronchial Hygiene Plan: Yes Pt demonstrates correctly for effective cough, Yes Pt demo correct for device - returned use of PEP therapy device, Yes Pt demo correct for improved hydration, Yes Pt demo correct for hand hygiene, Yes Pt demo correct for verbalize when to call MD - verbalizes signs & symptoms of exacerbation Psychosocial - 60-Day - Assessment Depression reassess: Management of stress: Progressing - using relaxation techniques, Management of depression: Progressing - using coping skills, Practicing interventions: Met Tobacco - 60-Day Assessment - Program Goals Tobacco Program Goals: Complete smoking cessation. Attend education classes. Improve Knowledge Test score - Stage of Change Stages of Change:: Action - Learning Barriers Learning Barriers: Participates in education, Change in behavior - Family Support Do you have family support?: Yes - Tobacco Use Tobacco Use: Non-smoker Do you use smokeless tobacco?: No - Intervention Education Schedule Given:: Yes - Education Gave Education Materials For:: Pulmonary Disease, Risk Factors, Breathing Te chniques, Medical Compliance, Pulmonary A&P, Exacerbation Signs & Symptoms, Stress & Relaxation Nutrition/Wt Mgmt - 60-Day - Weight Management Weight Assessment:: Wt loss 1-2 lbs per week Weight:: 255 lb - actually gained 9 pounds this month Weight Goals Progress:: Referral to structured weight management program - Patient could ebnefit from strucutred weight loss program. Patient Health Questionnaire 60-Day Re-eval Assessment 1. Little interest or pleasure in doing things: Not at all 2. Feeling down, depressed, or hopeless: Several days 3. Trouble falling or staying asleep, or sleeping too much: Not at all 4. Feeling tired or having little energy: Several days 5. Poor appetite or overeating: Not at all 6. Feeling bad about yourself -- or that you are a failure or have let yourself or your family down: Not at all 7. Trouble concentrating on things, such as reading the newspaper or watching television: Not at all 8. Moving or speaking so slowly that other people could have noticed. Or the opposite - being so fidgety or restless that you have been moving around a lot more than usual: Not at all 9. Thoughts that you would be better off , or of hurting yourself in some way: Not at all How difficult have these problems made it for you to do your work, take care of things at home, or get along with other people?: Not difficult at all Total Score: 2 COPD Assessment Test [CAT] - Questions Never cough = 0, Cough all the time = 5: 1 No phlegm = 0, Chest full of phlegm = 5: 0 No chest tightness = 0, Chest very tight = 5: 0 No breathless w/exertion = 0, Very breathless w/exertion = 5: 2 No limitations w/activity = 0, Very limited w/activity = 5: 2 Confident leaving home = 0, Not at all confident = 5: 1 Sleep soundly = 0, Don't sleep soundly = 5: 2 Lots of energy = 0, No energy at all = 5: 1 Total CAT score:: 9 Self-Efficacy 60-Day Re-eval Assessment We would like to know how confident you are in doing certain activities. Please select your confidence level for:: Select your confidence level for the following using the scale 1-10 where 1 is not at all confident and 10 is totally confident. Your score is the average of all 6 responses. Fatigue: How confident are you that you can keep the fatigue caused by your disease from interfering with the things you want to do? Select Number: 9 Physical Discomfort or Pain: How confident are you that you can keep the physical discomfort or pain of your disease from interfering with the things you want to do? Select Number: 9 Emotional Distress: How confident are you that you can keep the emotional distress caused by your disease from interfering with the things you want to do? Select Number: 10 Other Symptoms or Health Problems: How confident are you that you can keep other symptoms or health problems from interfering with the things you want to do? Select Number: 10 Different Tasks and Activities: How confident are you that you can do the different tasks and activities needed to manage your health condition so as to reduce your need to see a doctor? Select Number: 10 Medication: How confident are you that you can do things other than just taking medication to reduce how much your illness affects your everyday life? Select Number: 10 Total Score:: 9
== END 2018-01-14 23:59 ==
LOC: PR 08:00
PROVIDERS: Family Provider Internal Medicine; PCP Internal Medicine; Visit Provider Internal Medicine Pulmonary Disease
DX: J44.9 Chronic obstructive pulmonary disease, unspecified (principal); E78.5 Hyperlipidemia, unspecified; I10 Essential (primary) hypertension; I25.5 Ischemic cardiomyopathy; E66.9 Obesity, unspecified; Z68.36 Body mass index [BMI] 36.0-36.9, adult; Z71.3 Dietary counseling and surveillance
CPT/HCPCS: 97150; 97803; G0424

== ENCOUNTER → 2018-01-17 11:54 | Outpatient (CLI) | payer MEDICARE, SELFPAY ==
[2018-01-17 12:11] LABS: International Normalized Ratio 2.2; Prothrombin Time (Protime)PT. 24.4 SECONDS (11.7-14.9)
== END ==
PROVIDERS: Family Provider Internal Medicine; PCP Internal Medicine; Referring Provider Internal Medicine; Visit Provider Internal Medicine
DX: Z95.2 Presence of prosthetic heart valve (principal); J44.9 Chronic obstructive pulmonary disease, unspecified; E78.5 Hyperlipidemia, unspecified; I10 Essential (primary) hypertension; I25.5 Ischemic cardiomyopathy; E66.9 Obesity, unspecified; Z68.36 Body mass index [BMI] 36.0-36.9, adult; Z71.3 Dietary counseling and surveillance
CPT/HCPCS: 36415; 85610; 97150; 97803; G0424

== ENCOUNTER → 2018-01-25 08:29 | Outpatient (CLI) | payer MEDICARE, SELFPAY ==
[2018-01-25 09:14] LABS: ALB/GLOB Ratio 1.1 RATIO (0.9-2.4); AST(SGOT) 26 U/L (15-37); Alanine Aminotransfer ALT/SGPT 31 U/L (13-56); Albumin, Serum 3.5 g/dL (3.2-5.0); Alkaline Phosphatase 112 U/L (45-117); Anion Gap 8 (5-15); BUN 18 mg/dL (7-18); BUN/Creat Ratio 20.8 RATIO (10-20); Calcium,Total 8.7 mg/dL (8.5-10.1); Chloride 106 mmol/L (98-107); Creatinine, Serum 0.86 mg/dL (0.55-1.02); EST Glomerular Filtration Rate 69 mL/min (>60); Est Glom Filt Rate - Afr Amer 83 mL/min (>60); Globulin 3.3 g/dL (2.2-4.2); Glucose 101 mg/dL (74-106); Potassium 4.3 mmol/L (3.5-5.1); Protein, Total 6.8 g/dL (6.4-8.2); Sodium Level 141 mmol/L (136-145)
[2018-01-25 09:20] LABS: BNP,B-Type NATRIURETIC PEPTIDE 124.2 pg/mL (0-100)
== END ==
PROVIDERS: Family Provider Internal Medicine; PCP Internal Medicine; Referring Provider Physician Assistant Medical; Visit Provider Physician Assistant Medical
DX: R60.9 Edema, unspecified (principal)
CPT/HCPCS: 36415; 80053; 83880

== ENCOUNTER → 2018-01-30 15:44 | Outpatient (CLI) | payer MEDICARE, SELFPAY ==
--- NOTE | 2018-01-30 15:50 | RAD_ITS ---
STUDY: X-RAY CHEST REASON FOR EXAM: Female, 72 years old. COPD, shortness of breath TECHNIQUE: Frontal and lateral views COMPARISON: August 16, 2017. FINDINGS: Stable sternotomy wires. The lungs are expanded. Basilar interstitial prominence. Normal size heart. Prosthetic valve is noted. Normal mediastinum and joshua. Normal visualized pulmonary arteries. Normal visualized aortic arch and descending thoracic aorta. Mild degenerative changes of the thoracic spine. Normal visualized ribs, clavicles, and shoulders. There is no demonstrated abnormality of the visualized soft tissue structures of the upper abdomen. RAD/Chest PA and Lateral IMPRESSION: Mild basilar interstitial prominence. Electronically Signed: Sandip Mauricio DO at 23:57 EDT Tel [phone], Service support ,
== END ==
PROVIDERS: Family Provider Internal Medicine; PCP Internal Medicine; Referring Provider Physician Assistant Medical; Visit Provider Physician Assistant Medical
DX: I25.5 Ischemic cardiomyopathy (principal); R06.02 Shortness of breath
CPT/HCPCS: 71046

== ENCOUNTER 2018-02-07 08:00 | Outpatient (RCR) | payer MEDICARE, SELFPAY ==
[2018-01-15 01:05] VITALS: BP 132/78; PULSE 66; RESP 16; TEMP 37.1; O2SAT 96
[2018-01-31 10:28] LABS: International Normalized Ratio 3.2; Prothrombin Time (Protime)PT. 32.7 SECONDS (11.7-14.9)
--- NOTE | 2018-02-09 11:24 | PR.ITP_ITS ---
Exercise - Final Assessment - Exercise Prescription Mode:: Treadmill, Airdyne, NuStep, Arm Ergometer Frequency (x/week): 3 Duration:: 35 Aerobic Exercise [30-60 min 3-7x/week]:: Met Selena-13 Disease Management - Final - Medications Medication reassessment: Yes Pt demonstrates correct technique timing for MDI, Yes Pt demonstrates correct technique timing for DPI, Yes Pt demonstrates correct technique timing for NEB, Yes Pt demonstrates correct technique timing for spacer - Bronchial Hygiene Bronchial Hygiene Plan: Yes Pt demonstrates correctly for effective cough, Yes Pt demo correct for device, Yes Pt demo correct for improved hydration, Yes Pt demo correct for hand hygiene, Yes Pt demo correct for verbalize when to call MD Psychosocial - Final Assess - Assessment Depression reassess: Management of stress: Met, Management of depression: Met, Practicing interventions: Met Tobacco - Final Assessment - Program Goals Tobacco Program Goals: Complete smoking cessation. Attend education classes. Improve Knowledge Test score - Stage of Change Stages of Change:: Action - Learning Barriers Learning Barriers: Participates in education, Change in behavior - Family Support Do you have family support?: Yes - Tobacco Use Tobacco Use: Non-smoker Do you use smokeless tobacco?: No - Intervention Education Schedule Given:: Yes - Education Education Goal Reached?: Yes Nutrition/Wt Mgmt - Final - Weight Management Weight:: 255 lb Weight Goals Progress:: Goal met Patient Health Questionnaire Discharge Assessment 1. Little interest or pleasure in doing things: Not at all 2. Feeling down, depressed, or hopeless: Not at all 3. Trouble falling or staying asleep, or sleeping too much: Not at all 4. Feeling tired or having little energy: Not at all 5. Poor appetite or overeating: Not at all 6. Feeling bad about yourself -- or that you are a failure or have let yourself or your family down: Not at all 7. Trouble concentrating on things, such as reading the newspaper or watching television: Not at all 8. Moving or speaking so slowly that other people could have noticed. Or the opposite - being so fidgety or restless that you have been moving around a lot more than usual: Not at all 9. Thoughts that you would be better off , or of hurting yourself in some way: Not at all How difficult have these problems made it for you to do your work, take care of things at home, or get along with other people?: Not difficult at all Total Score: 0 COPD Knowledge Test Discharge COPD is a lung disease that:: Makes it hard to breathe & gets worse over time In the [place] the term COPD describes 2 main lung conditions:: Emphysema & chronic bronchitis The most common lung irritant that causes COPD is:: Cigarette smoke Common signs and symptoms of COPD include:: An ongoing cough/cough that produces a large amount of mucus, & SOB If you have COPD, what steps can you take?: All of the above Swelling of the ankles is common in COPD:: False Fatigue [tiredness] is common in COPD:: True Wheezing is common in COPD:: True Crushing chest pain is common in COPD:: False Rapid weight loss is common in COPD:: False Breathlessness is a normal response to exercise: True Exercise should be avoided if it makes you short of breath: False All bronchodilators act within 10 minutes: False A spacer device increases the medication to the lungs: True Annual flu vaccine is recommended for pts w/lung disease: True COPD Knowledge Test Total Score:: 15 COPD Assessment Test [CAT] - Questions Never cough = 0, Cough all the time = 5: 3 No phlegm = 0, Chest full of phlegm = 5: 2 No chest tightness = 0, Chest very tight = 5: 1 No breathless w/exertion = 0, Very breathless w/exertion = 5: 2 No limitations w/activity = 0, Very limited w/activity = 5: 2 Confident leaving home = 0, Not at all confident = 5: 1 Sleep soundly = 0, Don't sleep soundly = 5: 2 Lots of energy = 0, No energy at all = 5: 1 Total CAT score:: 14 Self-Efficacy Discharge Assessment We would like to know how confident you are in doing certain activities. Please select your confidence level for:: Select your confidence level for the following using the scale 1-10 where 1 is not at all confident and 10 is totally confident. Your score is the average of all 6 responses. Fatigue: How confident are you that you can keep the fatigue caused by your disease from interfering with the things you want to do? Select Number: 10 Physical Discomfort or Pain: How confident are you that you can keep the physical discomfort or pain of your disease from interfering with the things you want to do? Select Number: 10 Emotional Distress: How confident are you that you can keep the emotional di stress caused by your disease from interfering with the things you want to do? Select Number: 10 Other Symptoms or Health Problems: How confident are you that you can keep other symptoms or health problems from interfering with the things you want to do? Select Number: 10 Different Tasks and Activities: How confident are you that you can do the different tasks and activities needed to manage your health condition so as to reduce your need to see a doctor? Select Number: 10 Medication: How confident are you that you can do things other than just taking medication to reduce how much your illness affects your everyday life? Select Number: 10 Total Score:: 10 Nutrition Survey - Nutrition Survey Instructions Scoring Instructions: Scoring is as follows: Yes = 1 points. No = 0 point. Patient score that is >/=12 is considered to be at potential nutritional risk and could benefit from a referral to a registered dietitian. - Nutrition Survey Discharge Have you lost >10 lbs over the past 2 months without trying?: No - but starting Why [facility] structured weight loss here at [facility]. Are you following a special diet at home for diabetes, low fat, or low salt?: Yes Are you interested in meeting with a dietitian for help understanding your diet?: Yes Do you eat less than 3 meals a day?: No Do you eat fatty meats (mancia, sausage, ribs, etc), fried foods, desserts, large amounts of salad dressings, margarine, butter, or cheese most days?: No Do you have food allergies? [Enter types in comment field]: No Do you eat in restaurants more than 3 times a week?: No Do you season food with salt, seasoning salt, or garlic salt?: No Do you used canned, boxed, frozen meals, or soups, seasoning packets?: No Total Score:: 2
== END 2018-02-14 23:59 ==
LOC: PR 08:00
PROVIDERS: Family Provider Internal Medicine; PCP Internal Medicine; Referring Provider Internal Medicine Pulmonary Disease; Visit Provider Internal Medicine Pulmonary Disease
DX: J44.9 Chronic obstructive pulmonary disease, unspecified (principal); Z95.2 Presence of prosthetic heart valve
CPT/HCPCS: 85610; 97150; G0424

== ENCOUNTER 2018-02-09 09:00 | Outpatient (RCR) | payer MEDICARE, SELFPAY | END 2018-02-09 11:34 | disposition home or self-care (01) | LOC: NS 09:00 | PROVIDERS: Family Provider Internal Medicine; PCP Internal Medicine; Visit Provider Internal Medicine Pulmonary Disease | DX: E78.5 Hyperlipidemia, unspecified (principal); I10 Essential (primary) hypertension; I25.5 Ischemic cardiomyopathy; J44.9 Chronic obstructive pulmonary disease, unspecified; E66.9 Obesity, unspecified; Z68.36 Body mass index [BMI] 36.0-36.9, adult; Z71.3 Dietary counseling and surveillance | CPT/HCPCS: 97803 ==

== ENCOUNTER 2018-03-14 14:22 | Outpatient (RCR) | payer MEDICARE, SELFPAY | END 2018-03-16 23:59 | LOC: NS 14:22 | PROVIDERS: Family Provider Internal Medicine; PCP Internal Medicine; Visit Provider Internal Medicine Pulmonary Disease | DX: I10 Essential (primary) hypertension (principal); E78.5 Hyperlipidemia, unspecified; J44.9 Chronic obstructive pulmonary disease, unspecified; E66.9 Obesity, unspecified; Z68.36 Body mass index [BMI] 36.0-36.9, adult; Z71.3 Dietary counseling and surveillance | CPT/HCPCS: 97803 ==

== ENCOUNTER 2018-03-29 13:00 | Outpatient (RCR) | payer MEDICARE, SELFPAY ==
[2018-02-07 08:51] VITALS: BMI 38.6
== END 2018-04-16 23:59 ==
LOC: NS 13:00
PROVIDERS: Family Provider Internal Medicine; PCP Internal Medicine; Visit Provider Internal Medicine Pulmonary Disease
DX: E66.9 Obesity, unspecified (principal); Z68.36 Body mass index [BMI] 36.0-36.9, adult; I25.5 Ischemic cardiomyopathy; E78.5 Hyperlipidemia, unspecified; J44.9 Chronic obstructive pulmonary disease, unspecified; I10 Essential (primary) hypertension; Z71.3 Dietary counseling and surveillance
CPT/HCPCS: 97803

== ENCOUNTER → 2018-04-11 09:13 | Outpatient (CLI) | payer MEDICARE, SELFPAY ==
[2018-02-07 08:51] VITALS: BMI 38.6
[2018-04-11 09:34] LABS: International Normalized Ratio 1.6; Prothrombin Time (Protime)PT. 18.7 SECONDS (11.7-14.9)
== END ==
PROVIDERS: Family Provider Internal Medicine; PCP Internal Medicine; Referring Provider Internal Medicine; Visit Provider Internal Medicine
DX: Z95.2 Presence of prosthetic heart valve (principal)
CPT/HCPCS: 85610

== ENCOUNTER 2018-04-23 13:29 | Outpatient (RCR) | payer MEDICARE, SELFPAY ==
[2018-02-07 08:51] VITALS: BMI 38.6
== END 2018-05-17 23:59 ==
LOC: NS 13:29
PROVIDERS: Family Provider Internal Medicine; PCP Internal Medicine; Visit Provider Internal Medicine Pulmonary Disease
DX: E66.9 Obesity, unspecified (principal); Z68.36 Body mass index [BMI] 36.0-36.9, adult; I25.5 Ischemic cardiomyopathy; E78.5 Hyperlipidemia, unspecified; J44.9 Chronic obstructive pulmonary disease, unspecified; I10 Essential (primary) hypertension; Z71.3 Dietary counseling and surveillance
CPT/HCPCS: 97803

== ENCOUNTER → 2018-05-28 11:24 | Outpatient (CLI) | payer MEDICARE, SELFPAY ==
[2018-05-10 09:55] VITALS: BMI 38.5
--- NOTE | 2018-05-28 11:35 | RAD_ITS ---
STUDY: X-RAY - LUMBAR SPINE REASON FOR EXAM: Female, 73 years old. Low back pain TECHNIQUE: 5 view(s) of the lumbar spine were obtained. COMPARISON: None FINDINGS: Normal lumbar lordosis. There is no substantial scoliosis. There is a normal alignment of the vertebrae. Normal vertebral bodies and endplates. There is multi-level degenerative disc disease with multi-level disc space narrowing. Findings most pronounced at L5-S1. There is no demonstrated fracture. The soft tissue structures are unremarkable. RAD/L/S Spine Min 4 Views IMPRESSION: No acute abnormality. Degenerative changes of lower lumbar spine. Electronically Signed: Abdi Portillo MD at 17:12 EST , Service support ,
== END ==
PROVIDERS: Family Provider Internal Medicine; PCP Internal Medicine; Referring Provider Nurse Practitioner Family; Visit Provider Nurse Practitioner Family
DX: M54.9 Dorsalgia, unspecified (principal)
CPT/HCPCS: 72110

== ENCOUNTER 2018-06-04 15:30 | Outpatient (RCR) | payer MEDICARE, SELFPAY ==
[2018-05-10 09:55] VITALS: BMI 38.5
== END 2018-06-14 23:59 ==
LOC: NS 15:30
PROVIDERS: Family Provider Internal Medicine; PCP Internal Medicine; Visit Provider Internal Medicine Pulmonary Disease
DX: E78.5 Hyperlipidemia, unspecified (principal); E66.9 Obesity, unspecified; Z68.36 Body mass index [BMI] 36.0-36.9, adult; I25.5 Ischemic cardiomyopathy; J44.9 Chronic obstructive pulmonary disease, unspecified; I10 Essential (primary) hypertension; Z71.3 Dietary counseling and surveillance
CPT/HCPCS: 97803

== ENCOUNTER 2018-07-03 08:00 | Outpatient (RCR) | payer MEDICARE, SELFPAY ==
[2018-05-10 09:55] VITALS: BMI 38.5
== END 2018-07-15 23:59 ==
LOC: NS 08:00
PROVIDERS: Family Provider Internal Medicine; PCP Internal Medicine; Visit Provider Internal Medicine Pulmonary Disease
DX: E78.5 Hyperlipidemia, unspecified (principal); E66.9 Obesity, unspecified; Z68.36 Body mass index [BMI] 36.0-36.9, adult; I25.5 Ischemic cardiomyopathy; J44.9 Chronic obstructive pulmonary disease, unspecified; I10 Essential (primary) hypertension; Z71.3 Dietary counseling and surveillance
CPT/HCPCS: 97803

== ENCOUNTER 2018-07-18 09:22 | Outpatient (RCR) | payer MEDICARE, SELFPAY ==
[2018-05-10 09:55] VITALS: BMI 38.5
== END 2018-07-18 23:59 | disposition home or self-care (01) ==
LOC: NS 09:22
PROVIDERS: Family Provider Internal Medicine; PCP Internal Medicine; Visit Provider Internal Medicine Pulmonary Disease
DX: E78.5 Hyperlipidemia, unspecified (principal); E66.9 Obesity, unspecified; Z68.36 Body mass index [BMI] 36.0-36.9, adult; I25.5 Ischemic cardiomyopathy; J44.9 Chronic obstructive pulmonary disease, unspecified; I10 Essential (primary) hypertension; Z71.3 Dietary counseling and surveillance
CPT/HCPCS: 97803

== ENCOUNTER → 2018-08-03 10:01 | Outpatient (CLI) | payer MEDICARE, SELFPAY ==
[2018-05-10 09:55] VITALS: BMI 38.5
[2018-08-03 10:22] LABS: International Normalized Ratio 2.4; Prothrombin Time (Protime)PT. 26.5 SECONDS (11.7-14.9)
== END ==
PROVIDERS: Family Provider Internal Medicine; PCP Internal Medicine; Referring Provider Internal Medicine; Visit Provider Internal Medicine
DX: Z95.2 Presence of prosthetic heart valve (principal)
CPT/HCPCS: 85610

== ENCOUNTER 2018-08-14 07:00 | Outpatient (RCR) | payer MEDICARE, SELFPAY ==
[2018-05-10 09:55] VITALS: BMI 38.5
--- NOTE | 2018-07-10 09:01 | HP.PTEVAL_ITS ---
Patient's Visit Information JOHN FRIEND is a 73 year old F referred to Physical Therapy by DEBBI JulienC with a diagnosis of BACK PAIN. Date of Evaluation: 07/10/18 Physical Therapist: Asif Abad, PT, Cert MDT, [facility] - Visit Plan Frequency: 2x /Week Duration: 4 Weeks Plan: Intially Aquatic PT for DLS,LUMBAR ROM,STRENGTHENING,POSTURAL EX'S. PROVIDED HEP TODAY THEN RECHECK PROGRESS TO LAND EXERCISE AT - Subjective Findings: This 73 y/o female presents to physical therapy with back pain for 6 months. Patient pain symmtrical lumbar. Patient was moving to new apartement caused back pain. Patient aggraveting factors lifting,bending ,squatting ,extended walking and standing. Aleviating factors sitting,water exercise. Patient denies parathesai/tinglng. Bowel/bladder good. Coughing/snezzing-. Patient sleeping good. Patient has seen pain management . Patient keila has membership at . Patien pain lumbar affects QOL and function. SOCIAL: single. VOCATION: RETIRED - Pain Bilateral Back Pain Intensity (Out of 10): 4 Pain Intensity Range: 4, 10 - Objective POSTURE: mild foward posture. GAIT: mild foward posture receprocal pattern. NEURO: denies parathesia/tingling ,reflexes L3-4,L4-5,L5-S1 1/2. PALAPTION: tender LS. SYMMRTRIES: pelvis assymtries. LUMBAR ROM: flexion min loss ,extension mod ,side glides mod loss. MMT: quads/hams 4/5,hip flexion 4-/5 ,ankle 4/5 - Special Tests L/S Slump test left side: Negative L/S Slump test right side: Negative L/S Left Straight Leg Raise: Negative L/S Right Straight Leg Raise: Negative - Goals Goal 1:: Independant with HEP and Aquatic PT Goal Time Frame: 4-6 Weeks Goal 2:: Independant with posture for ADL'S Goal Time Frame: 4-6 Weeks Goal 3:: Decrease lumbar pain by 50% or greater to improve function with ADL'S Goal Time Frame: 4-6 Weeks Goal 4:: Patient to inmprove lumbar ROM for funcyion of recovery Goal Time Frame: 4-6 Weeks Goal 5:: Patient to improve BACK JERSON score by 5 points or greater to improve function. Goal Time Frame: 4-6 Weeks - Rehabilitation Potential Physical Therapy Diagnosis: This patient has symmtrical lumbar pain with decrease ROM lumbar,decrease core strength pain with function waking and standing thus benifit from skilled PT Rehabilitation Potential: Good - Anticipated Interventions Patient/Client Instruction: Educate patient on: Condition, Plan of Care For the Purpose of:: To decrease pain, To increase ROM, To improve muscle performance and motor function, To improve ability to perform ADL's, To increase tolerance to activity/condition/position, To improve ability of physical actions for home/community/work/leisure, To improve health of tissue, To decrease soft tissue restriction, To increase flexibility/ROM, To reduce risk of recurrence, To improve ability to perform tasks related to life management Therapeutic Exercise to Include: Strength training, Body mechanics, Postural training, Flexibilty training, In an aquatic setting, Active ROM, Dynamic Lumbar Stabilization For the Purpose of:: To decrease pain, To increase ROM, To improve muscle performance and motor function, To improve ability to perform ADL's, To increase tolerance to activity/condition/position, To improve performance and independence with ADL's, To improve ability of physical actions for home/community/work/leisure, To improve health of tissue, To decrease soft tissue restriction, To increase flexibility/ROM, To improve ability to perform tasks related to life management TENS: Yes IF ES: Yes Cryotherapy (ice pack, ice massage): Yes Thermo therapy (hot pack): Yes For the Purpose of:: To decrease pain, To increase ROM, To improve nutrient delivery to tissue, To increase oxygenation perfusion, To improve health of tissue, To decrease soft tissue restriction Thank you for the opportunity to evaluate your patient. For Medicare and Medicare HMO plans, please review the plan of care and approve it. It will need to be FAXED BACK to us at [phone] for Medicare purposes. For Medicare only, by signing this I certify the plan of care. Please let me know if there are questions or concerns regarding this plan of care. Physician Signature: Date:
--- NOTE | 2018-08-14 07:37 | HP.PTDCSUM ---
HP - PT D/C Summary It has been my pleasure to treat JOHN FRIEND under orders from DEB Julien, for the diagnosis of BACK PAIN for a total of 5 visit(s). Discharge Date: 08/14/18 Please see the following information for a summary of their discharge status. - Subjective Subjective: Doing well..no pain. Patient feels more stable. Improved with ADL'S - Pain Bilateral Back Pain Intensity (Out of 10): 4 Cerv. Spine Pain Intensity (Out of 10): 4 - Overall Improvement % Improvement: 70 - Objective Objective/Function: POSTURE: mild foward. GAIT: reciprocal pattern. NEURO: intact. MMT: 4/5 EXCEPT 4-/5. LUMBAR ROM: flexion min,extension min loss,side glides min loss - Goals Goal 1:: Independant with HEP and Aquatic PT Goal Progress: Goal Met Goal 2:: Independant with posture for ADL'S Goal Progress: Goal Met Goal 3:: Decrease lumbar pain by 50% or greater to improve function with ADL'S Goal Progress: Goal Met Goal 4:: Patient to inmprove lumbar ROM for funcyion of recovery Goal Progress: Goal Met Goal 5:: Patient to improve BACK JERSON score by 5 points or greater to improve function. Goal Progress: Goal Met - Plan Plan: D/C TO AQUATICS - D/C Information Discharge Comments: AQUATICS If there are questions or concerns regarding this patient's physical therapy, please feel free to call me at [phone]. Thank you for the referral of this patient. Sincerely, Asif Abad, PT, Cert MDT, [facility]
== END 2018-08-14 19:00 | disposition home or self-care (01) ==
LOC: PT 07:00
PROVIDERS: Family Provider Internal Medicine; PCP Internal Medicine; Referring Provider Nurse Practitioner Family; Visit Provider Nurse Practitioner Family
DX: M54.9 Dorsalgia, unspecified (principal)
CPT/HCPCS: 97110; 97113; 97162; 97530

== ENCOUNTER → 2018-08-16 09:57 | Outpatient (CLI) | payer MEDICARE, SELFPAY ==
[2018-05-10 09:55] VITALS: BMI 38.5
[2018-08-16 10:24] LABS: International Normalized Ratio 1.8; Prothrombin Time (Protime)PT. 20.8 SECONDS (11.7-14.9)
== END ==
PROVIDERS: Family Provider Internal Medicine; PCP Internal Medicine; Referring Provider Internal Medicine; Visit Provider Internal Medicine
DX: Z95.2 Presence of prosthetic heart valve (principal)
CPT/HCPCS: 85610

== ENCOUNTER → 2018-10-09 06:42 | Outpatient (CLI) | payer MEDICARE, SELFPAY ==
[2018-09-17 10:02] VITALS: BMI 38.5
--- NOTE | 2018-10-09 06:44 | ECHOCS_ITS ---
Reason For Study: VALVE REPLACEMENT EVAL Procedure This was a 2D Doppler, Color Flow transthoracic echocardiogram. The study was technically difficult. Contrast injection was performed. Exam performed in department. Left Ventricle Normal LV size. Segmental dysfunction with preserved ejection fraction (see wall motion). The estimated ejection fraction is 55 %. Diastolic function is indeterminate. Infero-Basal: Hypokinetic. Basal inferoseptal: Hypokinetic. Mid-Inferior: Hypokinetic. Right Ventricle Normal RV size. Normal systolic function. Atria The left atrium is mildly enlarged. Normal right atrium. No doppler evidence for ASD. Mitral Valve Stable appearing mechanical mitral valve apparatus. Trivial transvalvular insufficiency of the mitral valve. Tricuspid Valve Normal tricuspid valve. Mild (1+) tricuspid valve insufficiency. Right ventricular systolic pressure estimated to be 36 mmHg. Aortic Valve Trisinus/trileaflet aortic valve. Moderate focal aortic valve calcification. Pulmonic Valve The pulmonic valve is not well visualized. Mild (1+) pulmonic valve insufficiency. Great Vessels Normal sized aortic root. Calcified aortic root. Pericardium/Pleural No pericardial effusion. Medication Diluted definity 5ml given slow IV push to enhance endocardial definition. MMode/2D Measurements & Calculations LVIDd: 5.3 cm IVSd: 1.2 cm Ao root diam: 2.8 cm LVIDs: 4.1 cm LVPWd: 1.2 cm RVDd: 3.8 cm FS: 22.2 % LAV(MOD-bp): 74.1 ml LVAd ap4: 31.0 cm2 SV(MOD-sp4): 43.6 ml LAV(MOD-bp) Indexed: 33.2 ml/m2 EDV(MOD-sp4): 100.6 ml LAV(MOD-sp2): 89.9 ml EDV(sp4-el): 106.5 ml LAV(MOD-sp4): 55.3 ml LVAs ap4: 22.3 cm2 ESV(MOD-sp4): 57.1 ml ESV(sp4-el): 58.6 ml EF(MOD-sp4): 43.3 % EF(sp4-el): 45.0 % SV(sp4-el): 47.9 ml LA A4 area: 19.7 cm2 LA dimension(2D): 4.6 cm RA A4 area: 15.8 cm2 Time Measurements MV dec time: 0.22 sec Doppler Measurements & Calculations MV E max antonio: 151.5 cm/sec Lat Peak E' Antonio: 11.4 cm/sec Med Peak E' Antonio: 7.8 cm/sec E/E' lat: 13.3 E/E' med: 19.3 MV V2 max: 164.8 cm/sec MV P1/2t max antonio: 153.0 cm/sec Ao V2 max: 150.5 cm/sec MV max P.9 mmHg MV P1/2t: 68.9 msec Ao max P.1 mmHg MV V2 mean: 78.4 cm/sec MV dec slope: 650.9 cm/sec2 MV mean P.2 mmHg MVA(P1/2t): 3.2 cm2 MV V2 VTI: 34.9 cm LV V1 max: 74.9 cm/sec PA V2 max: 111.2 cm/sec TR max antonio: 284.8 cm/sec LV V1 max P.2 mmHg TR max P.5 mmHg Interpretation Summary The study was technically difficult. Contrast injection was performed. Segmental dysfunction with preserved ejection fraction (see wall motion). The estimated ejection fraction is 55 %. The left atrium is mildly enlarged. Stable appearing mechanical mitral valve apparatus. Trivial transvalvular insufficiency of the mitral valve. Mild (1+) tricuspid valve insufficiency. Moderate focal aortic valve calcification. Mild (1+) pulmonic valve insufficiency. Calcified aortic root. Right ventricular systolic pressure estimated to be 36 mmHg. Diastolic function is indeterminate. Ordering Physician: Shadi Braga Referring Physician: CLAUDE STRAUSS Performed By: Elissa Owen RDCS
--- NOTE | 2018-10-09 11:07 | STRESSREP ---
Stress Test Report Date: 10-09-18 Procedure: Pharmacologic stress nuclear imaging study Indications: Syncope; CAD; CABG; status post mitral valve replacement; atrial fibrillation/flutter Consent: Per the patient Procedure: The patient underwent pharmacologic (Regadenoson) evaluation with a peak heart rate of 82 beats per minute (55 %predicted maximal heart rate) and a peak blood pressure of 118/80 mmHg. The baseline ECG demonstrated atrial fibrillation/flutter. The peak pharmacologic ECG demonstrated no obvious ECG changes. There was a rare PVC pretest, during infusion, and recovery. There was no complaint of chest discomfort during pharmacologic infusion or recovery. The examination was discontinued secondary to completion of protocol. Impression: 1. Pharmacologic (Regadenoson) evaluation 2. Peak pharmacologic ECG with continued atrial fibrillation/flutter with no obvious ECG changes. 3. There was a rare PVC pretest, during infusion, and recovery. 4. Nuclear images pending Myocardial perfusion imaging study: Technique: The patient was injected with 14.9 millicuries of technetium 99m Cardiolite and subsequently rest SPECT Cardiolite nuclear imaging was obtained in the horizontal long, vertical long, and short axis views. The patient underwent pharmacologic (Regadenoson) evaluation with a peak heart rate of 82 beats per minute (55 % percent predicted maximal heart rate) and a peak blood pressure of 118/80 mmHg. The patient was injected with 44.3 millicuries of technetium 99m Cardiolite and subsequently stress SPECT Cardiolite nuclear imaging was obtained in the horizontal long, vertical long, and short axis views. A gated Cardiolite study at peak stress was obtained. Interpretation: Rest and stress SPECT Cardiolite nuclear imaging status post realignment, normalization, and attenuation correction demonstrate the appearance of diminished myocardial perfusion/tracer uptake in portions of the basal inferior septal/basal inferior segments without significant change between rest and stress. There is end systolic thickening and brightening. The gated Cardiolite study demonstrates myocardial thickening and inward wall motion. The reported LVEF is 55 %. Impression: 1. Rest and stress SPECT cardiac nuclear imaging demonstrate myocardial perfusion changes compatible with diminished myocardial perfusion/tracer uptake in portions of the basal inferoseptal/basal inferior segments without significant change between rest and stress potentially compatible with the effects of soft tissue attenuation/artifact although an area of previous myocardial injury/infarction cannot necessarily be excluded. There are no myocardial perfusion changes considered diagnostic for associated stress-induced myocardial ischemia. 2. The gated Cardiolite study reports an LVEF of 55 %. This note was generated with [employer] software. It may contain incorrect words, spelling, and punctuation that were not noted in checking the note before signing.
== END ==
PROVIDERS: Family Provider Internal Medicine; PCP Internal Medicine; Referring Provider Internal Medicine Cardiovascular Disease; Visit Provider Internal Medicine Cardiovascular Disease
DX: I48.1 Persistent atrial fibrillation (principal); I25.10 Atherosclerotic heart disease of native coronary artery without angina pectoris; I49.3 Ventricular premature depolarization; R55 Syncope and collapse
CPT/HCPCS: 78452; 93017; 93306; A9500; Q9957; A4216; C8929; J2785

== ENCOUNTER 2018-11-13 09:00 | Outpatient (RCR) | payer MEDICARE, SELFPAY ==
[2018-09-17 10:02] VITALS: BMI 38.5
--- NOTE | 2018-10-10 09:38 | HP.PTEVAL_ITS ---
Patient's Visit Information JOHN FRIEND is a 73 year old F referred to Physical Therapy by DEB Julien with a diagnosis of BACK PAIN. Date of Evaluation: 10/10/18 Physical Therapist: Asif Abad, PT, Cert MDT, OCS - Visit Plan Frequency: 2x /Week Duration: 4 Weeks Plan: PT INTERVENTIONS TO INCLUDE DLS,POSTURE EX'S,LE STRENGTHENING PROGRESSION TO GYM EX'S HERNAN - Subjective Findings: This 73 y/o female presnets to physiacl therapy with back pain.Patient has had back pain about 7 months . Patient symptoms where incidous onset when moving in new apartament causing LBP. Patient recently seen had recent PT in [facility]. Patient does this on own currently. Patient pain symmtrical LBP decsriped as ache occassionally in legs. Aggravating factors bending,,lifting,extendes standing and walking. Symptoms affect ability to peform with ADL'S and housework tasks. Alleviating factors sitting ,rest,aquatic ex's. Denies parathesai/tingling. Coughing sneezing -. Patient RTD recommended epidural injections .Patient symptoms affect QOL. SOCAIL: SINGLE. VOCATION: retired - Pain Bilateral Back Pain Intensity (Out of 10): 4 Pain Intensity Range: 10 - Objective POSTURE: mild foward posture. GAIT: mild foward posture reciprocal pattern ANTALGIC GAIT. NEURO: denies parathesai/tinglng,reflexes L3-4,L4-5,L5-S1 2/3. SYMMTRIES: align. PALPATION: tender L-S. LUMBAR ROM: flexion min,extension mod loss,side glide mod loss. MMT: quads/hams 4/5 ,ip flexion 4-/5,ankle 4/5. FLEXABLITy: HAMS MIN TIGHT - Special Tests L/S Slump test left side: Negative L/S Slump test right side: Negative L/S Left Straight Leg Raise: Negative L/S Right Straight Leg Raise: Negative - Goals Goal 1:: Patient to be Independant with HEP Goal Time Frame: 4-6 Weeks Goal 2:: Patient to improve posture for ADLS'. Goal Time Frame: 4-6 Weeks Goal 3:: Patient decrease LBP by 50% or greater to improve function . Goal Time Frame: 4-6 Weeks Goal 4:: Patient to improve lumbar ROM for function of recovery. Goal Time Frame: 4-6 Weeks Goal 5:: Patient to improve back owestrey score by 5 points to improve QOL. Goal Time Frame: 4-6 Weeks - Rehabilitation Potential Physical Therapy Diagnosis: This patient has back pain chroic in nature with pain ,derease ROM and strength impairs function with ADL'S Rehabilitation Potential: Good - Anticipated Interventions Patient/Client Instruction: Educate patient on: Condition, Plan of Care For the Purpose of:: To decrease pain, To increase ROM, To improve muscle performance and motor function, To improve ability to perform ADL's, To increase tolerance to activity/condition/position, To improve performance and independence with ADL's, To improve ability of physical actions for home/community/work/leisure, To improve gait and locomotor functions, To decrease soft tissue restriction, To increase flexibility/ROM, To improve endurance, To improve ability to perform tasks related to life management Therapeutic Exercise to Include: Strength training, Body mechanics, Postural training, Flexibilty training, Dynamic Lumbar Stabilization For the Purpose of:: To decrease pain, To increase ROM, To improve muscle performance and motor function, To improve ability to perform ADL's, To improve ability of physical actions for home/community/work/leisure, To improve health of tissue, To decrease soft tissue restriction, To increase flexibility/ROM, To improve ability to perform tasks related to life management TENS: Yes IF ES: Yes Cryotherapy (ice pack, ice massage): Yes Thermo therapy (hot pack): Yes Ultrasound (thermal/non thermal): Yes For the Purpose of:: To decrease pain, To increase ROM, To improve muscle performance and motor function, To increase tolerance to activity/condition/position, To improve ability of physical actions for home/community/work/leisure, To improve health of tissue, To decrease soft tissue restriction, To improve ability to perform tasks related to life management Thank you for the opportunity to evaluate your patient. For Medicare and Medicare HMO plans, please review the plan of care and approve it. It will need to be FAXED BACK to us at [phone] for Medicare purposes. For Medicare only, by signing this I certify the plan of care. Please let me know if there are questions or concerns regarding this plan of care. Physician Signature: Date:
--- NOTE | 2019-01-29 11:38 | HP.PTDCNRP_ITS ---
HP - Discharge Summary (1) - Patient Information JOHN FRIEND was seen in my office for initial evaluation on 10/10/18. The following Plan of Care was established for this patient: Initial Frequency: 2x /Week Initial Duration: 4 Weeks - Anticipated Interventions Patient/Client Instruction: Educate patient on: Condition, Plan of Care For the Purpose of:: To decrease pain, To increase ROM, To improve muscle perfo rmance and motor function, To improve ability to perform ADL's, To increase tolerance to activity/condition/position, To improve performance and independence with ADL's, To improve ability of physical actions for home/community/work/leisure, To improve gait and locomotor functions, To decrease soft tissue restriction, To increase flexibility/ROM, To improve endurance, To improve ability to perform tasks related to life management Therapeutic Exercise to Include: Strength training, Body mechanics, Postural training, Flexibilty training, Dynamic Lumbar Stabilization For the Purpose of:: To decrease pain, To increase ROM, To improve muscle performance and motor function, To improve ability to perform ADL's, To improve ability of physical actions for home/community/work/leisure, To improve health of tissue, To decrease soft tissue restriction, To increase flexibility/ROM, To improve ability to perform tasks related to life management TENS: Yes IF ES: Yes Cryotherapy (ice pack, ice massage): Yes Thermo therapy (hot pack): Yes Ultrasound (thermal/non thermal): Yes For the Purpose of:: To decrease pain, To increase ROM, To improve muscle performance and motor function, To increase tolerance to activity/condition/position, To improve ability of physical actions for home/community/work/leisure, To improve health of tissue, To decrease soft tissue restriction, To improve ability to perform tasks related to life management This patient was last seen in our office 11/13/18. Pertinent comments regarding their Physical therapy will appear below: Patient seen for PT for LBP with [facility] then progressed to land DLS ,postural ex's,LE FLEXABLITY, strengthening. At this point I will be discontinuing this patient from physical therapy. I would be happy to see this patient again in the future if found appropriate by the physician. Thank you! Asif Abad, PT, Cert MDT, OCS
== END 2018-11-13 19:00 | disposition home or self-care (01) ==
LOC: PT 09:00
PROVIDERS: Family Provider Internal Medicine; PCP Internal Medicine; Referring Provider Nurse Practitioner Family; Visit Provider Nurse Practitioner Family
DX: M54.9 Dorsalgia, unspecified (principal)
CPT/HCPCS: 97110; 97162